=== PATIENT | female | born 1965 | race African-American/Black ===

== ENCOUNTER 2023-08-02 10:44 | Emergency (ER) | payer BC, OTHER ==
[~2023-08-02] VITALS: Ht 165.1 cm; Wt 86.2 kg
[2023-08-02 11:40] LABS: BASOPHILS % (AUTO) 0.3 % (0.0-2.0); EOSINOPHILS % (AUTO) 0.4 % (0.0-7.0); HEMATOCRIT 38.4 % (31.2-41.9); MEAN CORPUSCULAR HEMOGLOBIN 29.1 uug (24.7-32.8); MEAN CORPUSCULAR HGB CONC 34 g/dL (32.3-35.6); MEAN CORPUSCULAR VOLUME 86.4 fL (75.5-95.3); MONOCYTES # (AUTO) 0.4 K/uL (0.1-1.30); MONOCYTES % (AUTO) 3.6 % (0.0-11.0); NEUTROPHILS # (AUTO) 10.8 K/uL (1.8-8.9); NEUTROPHILS % (AUTO) 87.7 % (38.5-71.5); PLATELET COUNT (AUTO) 302 K/uL (179-408); RED BLOOD CELL COUNT(AUTO) 4.45 MIL/uL (3.63-4.92); RED CELL DISTRIBUTION WIDTH 14.6 % (12.3-17.7); WHITE BLOOD COUNT (AUTO) 12.3 K/uL (3.8-11.8)
[2023-08-02 11:42] LABS: DIFFERENTIAL COMMENT 1
[2023-08-02] MEDS ORDERED: ONDANSETRON 4 MG/2 ML VIAL ONE (11:44)
[2023-08-02] MEDS ORDERED: MORPHINE SULFATE 4 MG/1 ML DISP.SYRIN ONE (11:44)
[2023-08-02] MEDS: IV NORMAL SALINE 1000 ML BAG IV ONE (11:45)
[2023-08-02 11:50] LABS: CREATININE 0.7 mg/dL (0.6-1.3); POTASSIUM 3.7 mmol/L (3.5-5.1)
[2023-08-02] MEDS ORDERED: IOHEXOL 300MG/ML 100 ML INFUS..BTL ONE (11:51)
[2023-08-02] MEDS ORDERED: SWABABLE VALVE TRANSFER SET EA MC ONE (11:51)
[2023-08-02] MEDS ORDERED: IV NORMAL SALINE 250 ML IV ONE (11:51)
[2023-08-02 11:56] LABS: ALBUMIN 3.8 g/dL (3.4-5.0); BILIRUBIN,DIRECT 0.1 mg/dL (0.0-0.2); BILIRUBIN,TOTAL 0.4 mg/dL (0.2-1.0); TOTAL PROTEIN, SERUM 7.8 g/dL (6.4-8.2)
[2023-08-02] MEDS: ONDANSETRON 4 MG/2 ML VIAL IV ONE (12:00)
[2023-08-02] MEDS: MORPHINE SULFATE 2 MG/1 ML DISP.SYRIN IV ONE (12:05)
[2023-08-02] MEDS ORDERED: LACT10SO58 PO (14:16)
[2023-08-02 14:23] VITALS: O2SAT 96
[2023-08-02] MEDS ORDERED: NITROGLYCERIN 0.4 MG/TAB BOTTLE SL ONE (18:12)
== END 2023-08-02 12:30 | disposition home or self-care (01) ==
LOC: ER 10:44
DX: K59.00 Constipation, unspecified (principal); R10.30 Lower abdominal pain, unspecified; E11.9 Type 2 diabetes mellitus without complications; R06.02 Shortness of breath
CPT/HCPCS: 99285; 74177; 96374; 96361; 96375; 80076; 80048; 83690; 85025; 36415; 93005; J2405; Q9967; J2270; J7040; A4606; A4663